=== PATIENT | male | born 1955 | race Caucasian/White ===

== ENCOUNTER 2016-09-08 12:40 | Emergency (ER) | payer OTHER | END 2016-09-08 15:45 | disposition home or self-care (01) | LOC: ER1 12:40 | DX: S66.922A Laceration of unspecified muscle, fascia and tendon at wrist and hand level, left hand, initial encounter (principal); M19.90 Unspecified osteoarthritis, unspecified site; Z79.899 Other long term (current) drug therapy; W26.8XXA Contact with other sharp object(s), not elsewhere classified, initial encounter; Y92.009 Unspecified place in unspecified non-institutional (private) residence as the place of occurrence of the external cause; Z23 Encounter for immunization | CPT/HCPCS: 12001; 29125; 73130; 90471; 90714; 99283 ==

== ENCOUNTER → 2020-09-26 | Outpatient (CLI) | payer MEDICARE ==
[~2020-09-26] MED LIST: AZITHROMYCIN250 MG PO; DECADRON6 MG PO; HYDROCHLOROTHIA50 MG PO; K-DUR TAB 20 M20 MEQ PO; LEVAQUIN500 MG PO; MOBIC15 MG PO; NEXIUM40 MG PO; SINGULAIR10 MG PO; VITAMIN C 500500 MG PO
== END ==
LOC: KOH-I 08:20
DX: R51.9 Headache, unspecified (principal); H69.93 Unspecified Eustachian tube disorder, bilateral
CPT/HCPCS: 70450

== ENCOUNTER → 2021-03-13 | Day surgery (SDC) | payer MEDICARE ==
[~2021-03-13] MED LIST changes: +ETODOLAC ER500 MG PO; +FLONASE 0.05% N16 GM; +MONTELUKAST SOD10 MG PO; +POTASSIUM CHLO20 ME2 PO; +TRIAMTERENE-HC1 EAC4 PO; +ZINC30 MG PO
== END | disposition home or self-care (01) ==
LOC: OR 05:47
DX: Z12.11 Encounter for screening for malignant neoplasm of colon (principal); K21.9 Gastro-esophageal reflux disease without esophagitis; Q39.4 Esophageal web; K31.9 Disease of stomach and duodenum, unspecified; K40.90 Unilateral inguinal hernia, without obstruction or gangrene, not specified as recurrent; R13.10 Dysphagia, unspecified; K29.70 Gastritis, unspecified, without bleeding; N40.0 Benign prostatic hyperplasia without lower urinary tract symptoms; I10 Essential (primary) hypertension; Z79.899 Other long term (current) drug therapy; Z80.9 Family history of malignant neoplasm, unspecified
CPT/HCPCS: 43239; G0121; J2704; J7120

== ENCOUNTER → 2021-04-04 | Outpatient (CLI) | payer MEDICARE | LOC: KOH-I 10:50 | DX: R22.43 Localized swelling, mass and lump, lower limb, bilateral (principal); I82.431 Acute embolism and thrombosis of right popliteal vein | CPT/HCPCS: 93970 ==

== ENCOUNTER → 2021-06-11 | Outpatient (CLI) | payer MEDICARE | LOC: KOH-I 15:30 | DX: R60.0 Localized edema (principal); I82.431 Acute embolism and thrombosis of right popliteal vein | CPT/HCPCS: 93971 ==

== ENCOUNTER → 2021-10-21 | Day surgery (SDC) | payer MEDICARE ==
[~2021-10-21] MED LIST changes: +ELIQUIS5 MG PO; +HYDROCODON-ACE1 EAC4 PO; +MELOXICAM15 MG PO; +ZONISAMIDE100 MG PO
== END | disposition home or self-care (01) ==
LOC: OR 07:30
DX: K40.90 Unilateral inguinal hernia, without obstruction or gangrene, not specified as recurrent (principal); I82.402 Acute embolism and thrombosis of unspecified deep veins of left lower extremity; I26.99 Other pulmonary embolism without acute cor pulmonale; D68.2 Hereditary deficiency of other clotting factors; N40.1 Benign prostatic hyperplasia with lower urinary tract symptoms; K21.9 Gastro-esophageal reflux disease without esophagitis; Z79.01 Long term (current) use of anticoagulants; Z79.899 Other long term (current) drug therapy
CPT/HCPCS: C1781; C9089; J0690; J2704; J3010

== ENCOUNTER → 2021-11-20 | Outpatient (CLI) | payer MEDICARE | LOC: HEART 5 09:04 | DX: R94.31 Abnormal electrocardiogram [ECG] [EKG] (principal); R01.1 Cardiac murmur, unspecified; R06.02 Shortness of breath | CPT/HCPCS: 93306 ==

== ENCOUNTER → 2021-12-13 | Outpatient (CLI) | payer MEDICARE | LOC: EXRD 13:46 | DX: M79.661 Pain in right lower leg (principal) | CPT/HCPCS: 93970 ==